=== PATIENT | male | born 1995 | race Hispanic/Latino ===

== ENCOUNTER 2018-10-07 00:11 | Emergency (ER) | payer OTHER ==
[2018-10-07] MEDS ORDERED: Tdap Vaccine 0.5 ml Vial (10-64 yrs) IM ONE ×2 (01:13→02:07)
--- NOTE | 2018-10-07 01:22 | ED PDOC ---
HPI: Wound Care - HPI Time Seen by Provider: 10/07/18 00:57 Chief Complaint (Nursing): Abnormal Skin Integrity Chief Complaint (Provider): right hand second digit laceration History Per: Patient History Of Present Illness: 23 y/o male presents for evaluation of laceration to right hand 2nd digit after accidentally cutting his finger with a knife one hour prior to arrival. Denies numbness/weakness right upper extremity, limitation of movement. Last Tetanus unknown Past Medical History Reviewed: Historical Data, Nursing Documentation, Vital Signs Vital Signs: Last Vital Signs Temp 97.7 F 10/07/18 00:36 Pulse 63 10/07/18 00:36 Resp 63 H 10/07/18 00:36 BP 152/77 H 10/07/18 00:36 Pulse Ox 98 10/07/18 00:36 - Medical History PMH: No Chronic Diseases - Surgical History Surgical History: No Surg Hx - Family History Family History: States: No Known Family Hx - Allergies Allergies/Adverse Reactions: Allergies Allergy/AdvReac Type Severity Reaction Status Date / Time No Known Allergies Allergy Verified 10/07/18 00:42 Review of Systems ROS Statement: Except As Marked, All Systems Reviewed And Found Negative Musculoskeletal: Positive for: Hand Pain (right hand 2nd digit laceration) Physical Exam - Reviewed Nursing Documentation Reviewed: Yes Vital Signs Reviewed: Yes - Physical Exam Appears: Positive for: Well, Non-toxic, No Acute Distress Extremity: Positive for: Normal ROM, Other (1.5cm superficial laceration lateral aspect right hand 2nd digit; wound edges approximate well. No active bleeding, surrounding edema, tenderness. FROM. Distal NV/motor intact) - ECG O2 Sat by Pulse Oximetry: 98 Procedure: Wound Repair - Time Performed Time Performed: 01:35 - Time Out Time Out: Side verified, Site verified, Patient ID confirmed - Consent Obtained Consent obtained: Verbal - Performed by Performed by: Mid-level Provider - Indications Indication(s):: Laceration - Location Location:: Right Finger:: Index Shape:: Curvilinear Dimensions Length cm: 1.5cm Dimensions width cm: 0.3cm Depth:: Epidermis - Debris Debris:: None - Irrigated Irrigated with ml of normal saline: 150mL - Wound repair method Jose:: Tissue glue, Steri-strips - Muscle repiar layer closed with Muscle repair layer closed with:: Wound well approximated, Dressing applied (finger splint applied), Tetanus ordered - Patient tolerated procedure Patient Tolerated Procedure:: Well Medical Decision Making Medical Decision Making: Patient educated on wound care, discharged with instructions to follow up with PMD within 2-3 days Return precautions given Disposition - Clinical Impression Clinical Impression: Finger laceration - Patient ED Disposition Is Patient to be Admitted: No Counseled Patient/Family Regarding: Diagnosis, Need For Followup - Disposition Disposition: Routine/Home Disposition Time: 01:50 Condition: STABLE Instructions: Laceration Repair With Glue (DC)
[2018-10-07 02:21] VITALS: BP 133/89; PULSE 62; RESP 16; TEMP 98.3; O2SAT 99
== END 2018-10-07 02:25 | disposition home or self-care (01) ==
LOC: H.ER 00:11
DX: S61.210A Laceration without foreign body of right index finger without damage to nail, initial encounter (principal); W26.0XXA Contact with knife, initial encounter; Y92.89 Other specified places as the place of occurrence of the external cause